=== PATIENT | male | born 1975 ===

== ENCOUNTER 2024-05-26 07:58 | Day surgery (SDC) | payer OTHER ==
[~2024-05-26] VITALS: Ht 177.8 cm; Wt 77.8 kg
[~2024-05-26 07:58] MED LIST: Lactated Ringer's 1,000 ML IV ONE; propofoL 40 ML IV ONE
[2024-05-26] MEDS ORDERED: Lactated Ringer's 1,000 ML IV ONE ×2 (08:31)
--- NOTE | 2024-05-26 08:44 | NUR ---
05/26/24 0844 Maria Isabel Ace 1ST I.V. ATTEMPT IN RIGHT HAND BY NATHAN
== END 2024-05-26 10:00 | disposition home or self-care (01) ==
LOC: ORSCSDS 07:58
PROVIDERS: Specialist
PROC: 0DBK8ZX Excision of Ascending Colon, Via Natural or Artificial Opening Endoscopic, Diagnostic (ICD-10-PCS; principal; 2024-05-26 09:30)
DX: R19.7 Diarrhea, unspecified (principal); K21.9 Gastro-esophageal reflux disease without esophagitis; D12.2 Benign neoplasm of ascending colon; K64.8 Other hemorrhoids; Z79.899 Other long term (current) drug therapy
CPT/HCPCS: 88305; J2704; J7120